=== PATIENT | female | born 1955 | race Caucasian/White ===

== ENCOUNTER → 2018-08-29 | Outpatient (CLI) | payer OTHER ==
--- NOTE | 2018-08-31 09:09 | MAM ---
EXAM DESCRIPTION: 3D Screening BILATERAL : Digital Mammography. CLINICAL HISTORY: 62 years Female SCREEN . No complaints. No personal or family history of breast cancer. Childbirth. Postmenopausal 15 years. No HRT. Lifetime risk of developing breast cancer (Tyrer-Cuzick model)(%): 8.9. COMPARISON: Baseline study at this facility. No prior reports available. TECHNIQUE: Bilateral CC and MLO projection full-field images, digital tomosynthesis mammographic technique. Bilateral digital 2-D full-field MLO images. CAD not available for tomosynthesis or 2-D images. FINDINGS: The breast parenchymal density pattern is: Scattered areas of fibroglandular density. No skin thickening or nipple retraction. Solitary microcalcifications left breast. No new focal, stellate mass or density, focal asymmetry , and no suspicious microcalcifications bilaterally. IMPRESSION: Benign exam. BIRAD CATEGORY: 2 BENIGN FINDINGS. RECOMMENDATIONS: FOLLOW UP: Routine digital bilateral mammographic screening, one year interval from August 2018. Written communication explaining the IMPRESSION and follow-up, will be mailed to the patient and referring health care provider. According to the [employer], yearly mammograms are recommended starting at age 40 and continuing as long as a woman is in good health. Any breast change noted on a breast self-exam should be reported promptly to the patient's healthcare provider. Breast MRI is recommended for women with an approximately 20-25% or greater lifetime risk of breast cancer, including women with a strong family history of breast or ovarian cancer and women who have been treated for Hodgkin's disease. A negative mammographic report should not delay tissue diagnosis in patients with significant clinical history or physical findings. Extremely dense breast tissue limits the sensitivity of digital mammography. Electronically signed by: Stone Coelho MD 08/31/2018 9:08 AM [facility]
== END ==
LOC: MAMMO 16:05
PROVIDERS: ATTEND Family Medicine
DX: Z12.31 Encounter for screening mammogram for malignant neoplasm of breast (principal)

== ENCOUNTER 2018-12-02 20:51 | Observation (INO) | payer OTHER ==
[2018-12-02] MEDS ORDERED: ALUM & MAG HYDROX-SIMETHICONE 30 ML, LIDOCAINE VISCOUS 2% 15 ML PO ONE ×2 (21:09)
[2018-12-02] MEDS ORDERED: ASPIRIN TABLET 325 MG TAB PO ONE (21:09)
[2018-12-02] MEDS ORDERED: ALUM & MAG HYDROX-SIMETHICONE 30 ML UD ONE (21:14)
[2018-12-02] MEDS ORDERED: LIDOCAINE HCL 2% (MOUTH-THROAT) 15 ML UD ONE (21:14)
--- NOTE | 2018-12-02 21:37 | RAD ---
EXAM DESCRIPTION: Chest,2 Views CLINICAL HISTORY: 63 years Female, left sided chest discomfort COMPARISON: None. FINDINGS: No consolidation. No pneumothorax. No significant pleural effusion. A 1.4 cm calcified granuloma in the right midlung zone is present. Cardiomediastinal silhouette is unremarkable. Osseous structures are unremarkable. IMPRESSION: No acute findings. Electronically signed by: Ronny Whittington MD 12/02/2018 9:34 PM NUCLEAR PHYSICIST
[2018-12-02] MEDS ORDERED: OMEPRAZOLE CAP 20 MG CAP PO ONE (21:49)
--- NOTE | 2018-12-02 22:56 | CT ---
EXAM: CT CHEST ANGIOGRAPHY WITH IV CONTRAST HISTORY: chest pain, known ascend aorta aneur 4.5cm COMPARISON: None Available TECHNIQUE: Multiple helical axial tomographic images were obtained of the chest following administration of intravenous contrast per angiographic protocol. Coronal, sagittal, and MIP reformatted images were obtained. This exam was performed according to our departmental dose-optimization program, which includes automated exposure control, adjustment of the mA and/or kV according to patient size and/or use of iterative reconstruction technique. FINDINGS: Thyroid gland: unremarkable. Axilla: unremarkable. Pulmonary arteries: Pulmonary arteries appear patent. No evidence of pulmonary embolism. Aorta: There is aneurysmal dilatation of the ascending thoracic aorta measuring up to 4.7 cm in diameter. No evidence of aortic dissection. Mediastinum: Unremarkable. No adenopathy. Heart: Heart is normal in size. A few coronary artery calcifications are present. Lungs/airways: No consolidation. Airways are patent. A 1.6 cm calcified granuloma in the right lower lobe is present. Pleural spaces: No significant pleural effusion. No pneumothorax. Osseous: Unremarkable. Soft tissues: Unremarkable. Visualized abdomen: Unremarkable. IMPRESSION: 1. No acute intrathoracic abnormality. 2. Mild aneurysmal dilatation of the ascending thoracic aorta which can be followed up as appropriate. Electronically signed by: Ronny Whittington MD 12/02/2018 10:53 PM MAINTENANCE CONSTRUCTION HELPER
[2018-12-02] MEDS ORDERED: ENOXAPARIN SODIUM 80 MG/0.8 ML SYG SUBCU ONE (23:31)
[2018-12-02] MEDS ORDERED: HYDROcodone 7.5MG/APAP 325MG 1 EA TAB PO ONE (23:34)
--- NOTE | 2018-12-02 23:37 | ED.PDOC ---
History of Present Illness - General Chief Complaint: Chest Pain/[place] Stated Complaint: CP around left breast/back x's 2 weeks Time Seen by Provider: 12/02/18 20:59 Source: patient Exam Limitations: no limitations - History of Present Illness Initial Comments: The patient's 63-year-old female presenting to the emergency room secondary to chest pain. The patient has had chest pain for at least the last 3-4 days off and on. The patient reports that she thinks that it is from a road trip took a couple of weeks with her propping her left arm up on the window for the better part of the drive. She feels that the pain is worse with movement and with twisting and taking a deep breath. It did wake her up from sleep last night. At its worst it was about a 6 or 7 out of 10 but currently it is a 1-2 out of 10. It is not made worse with palpation. No nausea or vomiting. No real abdominal pain. No syncope or near-syncope. The patient takes no real daily medicines other than [id number]-[id number] vitamins. She did have a coronary calcium score done a few months ago for preoperative purposes for breast augmentation that showed moderate calcification. No history of any coronary artery disease. No history of any significant hypercholesterolemia. The chest pain is not made worse with aerobic activity. Timing/Duration: unsure Severity: moderate Improving Factors: immobilization Worsening Factors: movement Associated Symptoms: chest pain Allergies/Adverse Reactions: Allergies melons Allergy (Uncoded 12/02/18 21:10) nuts Allergy (Uncoded 12/02/18 21:10) Home Medications: Ambulatory Orders Pravastatin Sodium 12/02/18 Review of Systems - Review of Systems Constitutional: States: no symptoms reported EENTM: States: no symptoms reported Respiratory: States: no symptoms reported Cardiology: States: chest pain Gastrointestinal/Abdominal: States: no symptoms reported Genitourinary: States: no symptoms reported Musculoskeletal: States: see HPI Skin: States: no symptoms reported Neurological: States: anxiety Endocrine: States: no symptoms reported All other Systems: No Change from Baseline Past Medical History (General) - Patient Medical History Hx Seizures: No Hx Stroke: No Hx Dementia: No Hx Asthma: No Hx of COPD: No Hx Cardiac Disorders: Yes Hx Congestive Heart Failure: No Hx Pacemaker: No Hx Hypertension: No Hx Thyroid Disease: No Hx Diabetes: No Hx Gastroesophageal Reflux: No Hx Renal Disease: No Hx Cancer: No Hx of HIV: No Hx Hepatitis C: No Hx MRSA: No Surgical History: other - Vaccination History Hx Tetanus, Diphtheria Vaccination: Yes Hx Influenza Vaccination: No - Social History Hx Tobacco Use: Yes - quit 21 years ago Hx Alcohol Use: Yes - wine daily Family Medical History - Family History Mother Family History: Unknown Physical Exam - Physical Exam General Appearance: Alert, Anxious, No apparent distress Eye Exam: bilateral normal Ears, Nose, Throat: hearing grossly normal, normal ENT inspection, normal pharynx Neck: full range of motion, supple Respiratory: lungs clear, normal breath sounds, no respiratory distress, no accessory muscle use Cardiovascular/Chest: normal peripheral pulses, regular rate, rhythm, no edema Peripheral Pulses: radial,right: 2+, radial,left: 2+, dorsalis pedis,right: 2+, dorsalis pedis,left: 2+ Gastrointestinal/Abdominal: non tender, soft Rectal Exam: deferred Back Exam: no CVA tenderness, no vertebral tenderness Extremity: normal range of motion, non-tender, normal inspection, no pedal edema, normal capillary refill Neurologic: animal attendant II-XII nml as tested, alert, normal mood/affect, oriented x 3 Skin Exam: normal color Comments: Vital Signs - 24 hr 12/02/18 12/02/18 12/02/18 20:55 21:01 21:33 Temperature 96.9 F L Pulse Rate [ 68 68 68 monitor] Respiratory 18 17 Rate Blood Pressure 136/80 114/84 [Right Arm] O2 Sat by Pulse 99 97 Oximetry 12/02/18 12/02/18 22:30 23:00 Temperature Pulse Rate [ 62 66 monitor] Respiratory 14 14 Rate Blood Pressure 134/77 112/68 [Right Arm] O2 Sat by Pulse 96 97 Oximetry Progress - Progress Progress: 12/02/18 23:41 the patient is 63-year-old female presenting with somewhat atypical chest pain that is most likely going to end up being musculoskeletal in nature, related to her recent trip. The patient does however have several additional risk factors of her baseline including a moderate coronary calcium score, fairly frequent PVCs and a history of a mild ascending aortic aneurysm. The patient is almost completely chest pain-free since her arrival here. She is receiving a dose of aspirin and Lovenox. I am going to give her 1 dose of hydrocodone to help alleviate any real musculoskeletal pain. She did receive GI medications. The patient will be admitted overnight for observation and extended rule out given her risk factors above. She is in no distress at this time. Continue monitoring with telemetry to make sure that she is not having any sustained arrhythmia of clinical consequence. If the patient rules out adequately and symptoms do not change to a more worrisome pattern then the patient can have her primary care doctor set her up for an exercise tolerance test in the near future. She should continue taking her aspirin for now. 12/02/18 23:45 - Results/Orders Results/Orders: 12/02/18 21:09 Telemetry .CONTINUOUS 12/02/18 21:15 EKG STAT EKG STAT Laboratory Results - last 24 hr 12/02/18 12/02/18 12/02/18 21:09 21:09 21:09 WBC 6.0 RBC 4.05 L Hgb 13.2 Hct 39.2 MCV 96.9 MCH 32.7 H MCHC 33.7 RDW 12.8 Plt Count 209 MPV 8.9 Absolute Neuts (auto) 3.40 Absolute Lymphs (auto) 1.70 Absolute Monos (auto) 0.50 Absolute Eos (auto) 0.40 Absolute Basos (auto) 0.10 Neutrophils % 56.1 Lymphocytes % 28.4 Monocytes % 8.6 Eosinophils % 6.0 H Basophils % 0.9 PT 10.2 INR 1.02 PTT (SP) 27.2 D-Dimer, Quantitative 0.22 Sodium 139 Potassium 4.1 Chloride 106 Carbon Dioxide 21 Anion Gap 16.1 BUN 14 Creatinine 0.61 BUN/Creatinine Ratio 23.0 H Random Glucose 93 Serum Osmolality 277.7 Calcium 9.2 Magnesium 2.0 Total Bilirubin 0.6 AST 30 ALT 30 Alkaline Phosphatase 60 Creatine Kinase 102 CK-MB (CK-2) 1.5 CK-MB (CK-2) % Not Reportable Troponin I < 0.02 B-Natriuretic Peptide 54.5 Serum Total Protein 7.2 Albumin 4.4 Globulin 2.8 Albumin/Globulin Ratio 1.6 TSH 2.34 chest x-ray appears to be grossly within normal limits. No widening of mediastinum. CT angiogram of the chest for reevaluation of the descending thoracic aortic aneurysm shows aneurysmal diameter of 4.7 cm which is grossly consistent with a 4.5 cm on the coronary calcium score scan performed several months ago. No evidence of dissection. No evidence of pulmonary embolus. She does have a stable chronic pulmonary nodule. EKG shows sinus bradycardia at 57 bpm. Telemetry monitoring shows fairly frequent PVCs at 5-10/m. Normal to slightly right axis. Normal R-wave progression. No ST segment or T-wave changes definitive for ischemia. Normal QT interval.. Departure - Departure Clinical Impression: Atypical chest pain, Asymptomatic PVCs Disposition: Admit Patient Departure Forms: ED Discharge - Pt. Copy, Patient Portal Self Enrollment Home Medications: Ambulatory Orders Pravastatin Sodium 12/02/18 Decision To Admit - Decistion To Admit Decision to Admit Reason: Medical Nature Decision to Admit Date: 12/02/18 Decision to Admit Time: 23:45
[2018-12-03] MEDS ORDERED: ACETAMINOPHEN 325 MG TAB PO PRN (00:12)
[2018-12-03] MEDS ORDERED: SODIUM CHLORIDE 0.9% (FLUSH) 10 ML SYG IV PRN (00:12)
[2018-12-03] MEDS ORDERED: NITROGLYCERIN 0.4 MG 25 EA TAB SL PRN (00:12)
[2018-12-03] MEDS ORDERED: MORPHINE SULFATE INJ 10 MG/ML VIAL IV PRN (00:12)
[2018-12-03] MEDS ORDERED: IV SET AND CAP CHANGE INJ INJ SCH (00:30)
[2018-12-03 05:55] VITALS: O2SAT 98
[2018-12-03] MEDS ORDERED: SODIUM CHLORIDE 0.9% (FLUSH) 10 ML SYG IV SCH (09:00)
[2018-12-03 09:43] VITALS: BP 106/74; TEMP 97.6
--- NOTE | 2018-12-04 08:19 | SSS ---
SUPERVISING PHYSICIAN: Juhi Sosa MD DATE OF ADMISSION: 12/03/18 DATE OF DISCHARGE: 12/03/18 ADMISSION DIAGNOSIS: 1. Chest pain with premature ventricular contractions. DISCHARGE DIAGNOSIS: 1. Chest pain with negative cardiac enzymes and EKGs to any acute injury or evidence of acute coronary syndrome, probably costochondritis involving the left chest wall. 2. Mild aneurysmal dilation as noted on CTA of the chest of the ascending thoracic aorta with followup recommended in outpatient setting. HISTORY OF PRESENT ILLNESS: Ms. Hernández is a 63-year-old female patient who initially presented to the Emergency Room on 12/02/18 complaining of chest pain that she had been having on and off for four days. She reports she had been on several road trips over the last several weeks, driving, having her arm propped at the window and noticed she had been having some pain when she was twisting and taking deep breaths. The night before admission, she was actually awoken by the pain and it seemed to be about 6 to 7/10, but on admission to the Emergency Department she actually was complaining of just 1/10. There was no reported nausea, vomiting, abdominal pain, syncopal episodes, diaphoresis. She has a history of just taking [id number] medications including vitamins and supplements. She had been recently worked up by a plastic surgeon this past year to have breast augmentation and was referred to cardiology because it was felt by the plastic surgeon that she had had a previous myocardial infarction. The shower room attendant she saw did a Coronary Calcium Score which found just moderate calcifications. She has no significant history of coronary artery disease or any history of hypercholesterolemia. She did note that her chest pain was made worse with aerobic activity, but was not present when she would lay still and flat in the bed. In the Emergency Room, laboratory studies showed her CBC within normal limits as well as coags and chemistries with initial troponin, two sets, being less than 0.02 and 0.02 with normal TSH. Initial EKG showed normal sinus rhythm with no concerning ST or T wave changes. She was given an aspirin in the Emergency Room, GI cocktail, morphine, one nitro and Prilosec which all did result in complete resolution of her symptoms. Given her low risk factors, but continued pain, Dr. Santos requested the patient be placed in Observation for an extended rule out for possible acute coronary syndrome. She was placed in Observation in stable condition on telemetry. PAST MEDICAL HISTORY: No chronic illnesses listed. PAST SURGICAL HISTORY: 1. Trigger thumb release, right hand. OUTPATIENT MEDICATIONS: 1. Pravastatin, unknown dose. 2. Baby aspirin. ALLERGIES: AVOCADOS, SHELLFISH, MELONS, AND NUTS. FAMILY HISTORY: Mother at age 58 secondary to melanoma. Her father was murdered. She has two sisters that are healthy. Both grandparents lived to advanced ages, 95 and 98, with no significant history. She has two children that are both healthy. SOCIAL HISTORY: She lives in [place]. She has two children. She is . 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 She did smoke at an early age and quit 21 years previously. She notes she drinks wine on a rare occasion, but does not use illicit drugs. REVIEW OF SYSTEMS: CONSTITUTIONAL: Denies any fevers, chills, or general malaise. HEENT: Negative for sore throats, earaches, nasal congestion, visual disturbances. RESPIRATORY: Negative for shortness of breath, wheezing or coughing. CARDIOVASCULAR: Chest pain, left lateral chest wall, reproducible with movement for the last three to four days as noted in history of present illness. GASTROINTESTINAL: Negative for nausea, vomiting, diarrhea, constipation or abdominal pain. GENITOURINARY: Negative for dysuria, hematuria, polyuria. MUSCULOSKELETAL: As noted in history of present illness. NEUROLOGIC: Positive for anxiety, but negative for any ataxia, syncopal episodes, seizure activity or other focal deficits. PHYSICAL EXAMINATION: VITAL SIGNS: Temperature 96.9. Pulse 68. Blood pressure 136/80. Respirations 18. Oxygen saturation 99% on room air. ASSESSMENT ON ADMISSION: The patient was in no acute distress, resting comfortably, alert. HEENT: Tympanic membranes clear bilaterally. Oropharynx is pink, moist without any lesions. NECK: Supple, nontender with full range of motion. No jugular venous distention noted. RESPIRATORY: Lungs clear to auscultation bilaterally without any rhonchi, wheezes, or rales. CARDIOVASCULAR: Regular rate and rhythm without any appreciable murmurs, gallops, or rubs. ABDOMEN: Soft, nontender. Positive bowel sounds. BACK: Without CVA tenderness or vertebral tenderness. EXTREMITIES: She moves all extremities ad yolis. No pedal edema. NEUROLOGIC: The patient is alert and oriented times three. Cranial nerves II- XII are grossly intact. SKIN: [place], warm and dry. No lesions or rashes noted. LABORATORY: CBC showed white count 6,000, hemoglobin 13.2, hematocrit 39.2, platelet count 209,000, differential without a left shift. Coagulation studies showed normal PT, PTT and D-dimer. Chemistries were all within normal limits including liver enzymes. Initial two sets of troponins were less than 0.02 and then 0.02. TSH normal at 2.34. A third set of enzymes prior to discharge were unchanged at 0.02. RADIOLOGY: Chest x-ray in the Emergency Room prior to admission showed no acute findings. She then had a thoracic CTA and per radiologic interpretation showed no acute intrathoracic abnormalities. There was mild aneurysmal dilation of ascending thoracic aorta which could be followed up as appropriate. ASSESSMENT: As noted above. HOSPITAL COURSE: Ms. Hernández was admitted through the Emergency Room for chest pain rule out. She had resolution of her pain after receiving GI cocktail, morphine, baby aspirin. She was placed in Observation for rule out purposes. She had no changes in her EKG, which all three showed normal sinus rhythm. The two prior to discharge were showing a sinus bradycardia with no ST or T wave changes indicating acute coronary syndrome or injury pattern. She had no return of her pain and was felt clinically stable enough to be discharged to have close followup with her shower room attendant. PLAN: Ms. Hernández was discharged after an extended observation period to rule out acute coronary syndrome. She was given instructions to followup with her shower room attendant for a stress test in the near future. She was told she could continue her regular exercise program unless she started having the same symptoms at which time she was to report to the Emergency Department or call her shower room attendant. She was encouraged not to start any additional training programs or activity that she normally does not do until she was cleared by her shower room attendant. DIET: Low-fat diet. MEDICATIONS AT DISCHARGE: 1. Aspirin 325 mg daily. 2. Pravastatin as prior to hospitalization. CONDITION AT DISCHARGE: Stable and improved. DISPOSITION: The patient is discharged in stable condition. #[id number] [facility]
[2018-12-04] MEDS ORDERED: ASPIRIN TABLET 325 MG TAB PO SCH (09:00)
== END 2018-12-03 09:45 | disposition home or self-care (01) ==
LOC: ER 20:51 → MS 23:53
PROVIDERS: ADMIT Nurse Practitioner Family; ATTEND Nurse Practitioner Family
DX: R07.89 Other chest pain (principal); I49.3 Ventricular premature depolarization; I71.2 Thoracic aortic aneurysm, without rupture; R91.1 Solitary pulmonary nodule; Z87.891 Personal history of nicotine dependence; Z79.82 Long term (current) use of aspirin; Z79.899 Other long term (current) drug therapy; Z91.018 Allergy to other foods; Z91.013 Allergy to seafood; Z80.8 Family history of malignant neoplasm of other organs or systems
CPT/HCPCS: 96372; J1650; 85379; 82553; 80053; 36415 ×2; 85025; 82550; 83735; 85730; 85610; 84443; 84484 ×3; 83880; 71046; 71275; 94760 ×2; 99285; 93005 ×4; G0378